=== PATIENT | female | born 1990 | race Caucasian/White ===

== ENCOUNTER 2021-06-14 16:34 | Emergency (ER) | payer OTHER ==
[2021-06-14] MEDS ORDERED: Sodium Chloride 0.9% 10 ML Syringe FLUSH PRN (20:57)
[2021-06-14] MEDS ORDERED: Sodium Chloride 0.9% 1,000 ML IV STA (20:57)
[2021-06-14] MEDS: Ondansetron 4 MG/2 ML SDV IVPUSH ONE ×2 (21:49)
== END 2021-06-14 23:28 | disposition home or self-care (01) ==
LOC: JD.ED 16:34
DX: O98.511 Other viral diseases complicating pregnancy, first trimester (principal); U07.1 COVID-19; Z88.0 Allergy status to penicillin; Z88.5 Allergy status to narcotic agent; Z3A.01 Less than 8 weeks gestation of pregnancy
CPT/HCPCS: 36415; 80053; 83735; 85025; 96374; 99284; J2405; J7030

== ENCOUNTER 2022-01-31 01:08 | Inpatient (IN) | payer OTHER ==
[2022-01-31] MEDS ORDERED: Nalbuphine HCl 10 MG/ 1ML Amp IVPUSH PRN (01:48)
[2022-01-31] MEDS ORDERED: Sodium Chloride 0.9% 10 ML Syringe FLUSH PRN (01:48)
[2022-01-31] MEDS ORDERED: Acetaminophen 325 MG Tab PO PRN (01:48)
[2022-01-31] MEDS ORDERED: Ondansetron 4 MG/2 ML SDV IVPUSH PRN (01:48)
[2022-01-31] MEDS ORDERED: Lactated Ringers 1,000 ML IV SCH (02:00)
[2022-01-31] MEDS ORDERED: Oxytocin/Lactated Ringers 10 UNIT/1,000 ML BAG IV SCH (02:00)
[2022-01-31] MEDS ORDERED: Oxytocin/Lactated Ringers 10 UNIT/1,000 ML BAG IV ONE (03:04)
[2022-01-31] MEDS ORDERED: Benzocaine/Menthol 20%-0.5% Spray 78 GM Cannister TOP PRN (04:42)
[2022-01-31] MEDS ORDERED: Witch Hazel Medicated Pads 40/Jar TOP PRN (04:42)
[2022-01-31] MEDS: Ibuprofen 600 MG Tab PO PRN ×3 (05:26→19:50)
[2022-01-31] MEDS ORDERED: Sodium Chloride 0.9% 10 ML Syringe FLUSH SCH (09:00)
[2022-01-31] MEDS: Acetaminophen 325 MG Tab PO PRN (15:59)
[2022-01-31] MEDS ORDERED: Docusate Sodium 100 MG Cap PO ONE (23:52)
[2022-02-01] MEDS: Ibuprofen 600 MG Tab PO PRN (04:15)
[2022-02-01] MEDS: Acetaminophen 325 MG Tab PO PRN (09:39)
== END 2022-02-01 12:15 | disposition home or self-care (01) | DRG 807 ==
LOC: JD.OBCHECK 01:08 → JD.OB 01:10 → JD.OBCHECK 01:48 → JD.OB 01:49 → OBSVTOIN 03:13 → JD.OB 03:14
PROVIDERS: ADMIT Obstetrics & Gynecology; ATTEND Obstetrics & Gynecology
PROC: 10E0XZZ Delivery of Products of Conception, External Approach (ICD-10-PCS; principal; 2022-01-31)
DX: O80 Encounter for full-term uncomplicated delivery (principal); Z37.0 Single live birth; Z3A.39 39 weeks gestation of pregnancy; Z86.16 Personal history of COVID-19
CPT/HCPCS: 36415; 59025; 59409; 85027; 86592; 86850; 86900; 86901; A9270-GY